=== PATIENT | female | born 1930 | race Caucasian/White ===

== ENCOUNTER 2017-08-29 09:17 | Inpatient (IN) | payer MEDICARE ==
[~2017-08-29] VITALS: Ht 160 cm; Wt 66.0 kg
[~2017-08-29 09:17] MED LIST: Bactrim Ds Tab1 EACH PO; CEPH500 PO; CREON DR 12,001 EACH PO; FAMO20 PO; METO25ER; METPRE4DP PO; Metoprolol Succ25 MG PO; Norco 5-325 Ta1 EACH PO; OMEPRAZOLE MAGN20 MG PO; OXYACE5T PO; Ondansetron Odt8 MG PO; Percocet 5-3251 EACH PO; SUCR1 PO; TRAM50 PO; Zofran Odt4 MG PO; [UNRECOGNIZED DRUG - REMARK]; [UNRECOGNIZED DRUG - REMARK]
[2017-08-29 09:45] LABS: BASOPHILS ABSOLUTE AUTO 0.03 K/mm3 (0.00-0.23); BASOPHILS PERCENT AUTO 1 % (0-2); EOSINOPHILS ABSOLUTE AUTO 0.18 K/mm3 (0.00-0.68); EOSINOPHILS PERCENT AUTO 3 % (0-6); Hematocrit 38.5 % (33.0-51.0); Hemoglobin 13.2 g/dL (11.5-16.0); IMMATURE GRAN ABSOLUTE AUTO 0.02 K/mm3 (0.00-0.10); IMMATURE GRAN PERCENT AUTO 0 % (0-1); LYMPHOCYTES ABSOLUTE AUTO 1.06 K/mm3 (0.84-5.20); LYMPHOCYTES PERCENT AUTO 17 % (21-46); MONOCYTES ABSOLUTE AUTO 0.32 K/mm3 (0.16-1.47); MONOCYTES PERCENT AUTO 5 % (4-13); Mean Corpuscular HGB 30.1 pg (26.0-34.0); Mean Corpuscular HGB Conc 34.3 g/dL (31.5-36.5); Mean Corpuscular Volume 88 fL (80-100); NEUTROPHILS ABSOLUTE AUTO 4.81 K/mm3 (1.96-9.15); NEUTROPHILS PERCENT AUTO 75 % (41-73); Platelet Count 234 K/mm3 (150-400); RDW Coefficient Variation 12.6 % (11.7-14.2); RDW Standard Deviation 40.8 fL (35.1-46.3); Red Blood Cell Count 4.39 M/mm3 (3.80-5.20); White Blood Cell Count 6.42 K/mm3 (4.00-11.30)
[2017-08-29 10:00] LABS: International Normalized Ratio 1.08; Prothrombin Time Results 11.1 Sec (9.7-11.5)
[2017-08-29 10:05] LABS: Alanine Aminotransfer (ALT/SGP 21 U/L (12-78); Albumin, Blood 3.5 g/dL (3.4-5.0); Albumin/Globulin Ratio 0.9 (0.8-1.8); Alk Phos 66 U/L (50-136); Anion Gap 11 mmol/L (6-16); Aspartate Aminotrans (AST/SGOT 33 U/L (12-37); Bilirubin, Total 1.2 mg/dL (0.1-1.0); Blood Urea Nitrogen 14 mg/dL (8-24); Bun/Creatinine Ratio 21.9 (12.0-20.0); CO2, Blood 26 mmol/L (21-32); Calcium, Blood 8.6 mg/dL (8.5-10.1); Chloride, Blood 104 mmol/L (98-108); Creatinine, Blood 0.64 mg/dL (0.40-1.00); Globulin, Blood 3.8 g/dL (2.2-4.0); Glomerular Filtration Rate >60 (60-); Glucose, Blood 147 mg/dL (70-99); Potassium, Blood 3.5 mmol/L (3.5-5.5); Sodium, Blood 141 mmol/L (136-145); Total Protein, Blood 7.3 g/dL (6.4-8.2)
[2017-08-29] MEDS ORDERED: CREON DR 24,001 EACH PO (14:25)
[2017-08-29] MEDS ORDERED: FISH OIL 1,0001 EAC1 PO (14:25)
[2017-08-29] MEDS ORDERED: ACET325 PO (14:26)
[2017-08-29] MEDS ORDERED: TRAM50 PO (14:26)
[2017-08-29] MEDS ORDERED: Zofran8 MG PO (14:27)
[2017-08-30 05:00] LABS: Anion Gap 8 mmol/L (6-16); Blood Urea Nitrogen 14 mg/dL (8-24); Bun/Creatinine Ratio 19.8 (12.0-20.0); CHOL/HDL RATIO 3.5; CO2, Blood 29 mmol/L (21-32); Calcium, Blood 8.4 mg/dL (8.5-10.1); Chloride, Blood 102 mmol/L (98-108); Cholesterol 195 mg/dL (50-200); Creatinine, Blood 0.71 mg/dL (0.40-1.00); Glomerular Filtration Rate >60 (60-); Glucose, Blood 115 mg/dL (70-99); HDL Cholesterol 55 mg/dL (>39); LDL/HDL RATIO 2.3; Low Density Lipoprotein Chol 128 mg/dL (0-110); Potassium, Blood 3.4 mmol/L (3.5-5.5); Sodium, Blood 139 mmol/L (136-145); Triglycerides 59 mg/dL (30-160); Very Low Density Lipoprot Chol 11 mg/dL (6-32)
[2017-08-31 01:47] LABS: Source, Urine Clean Catch
[2017-08-31 01:49] LABS: Bilirubin, Urine Neg (Neg); Blood, Urine 1+ (Neg); Glucose Qualitative, Urine Neg (Neg); Ketones, Urine Neg (Neg); Leukocyte Esterase, Urine 3+ (Neg); Nitrite, Urine Neg (Neg); Protein, Urine 1+ (Neg); Urobilinogen, Urine NORM (Normal)
[2017-08-31 01:51] LABS: Appearance, Urine Cloudy (Clear); Color, Urine Yellow (P-Yellow)
[2017-08-31 02:01] LABS: Bacteria Many /hpf; Red Blood Cells, Urine Rare /hpf (0-2); Squamous Epithelial Cells Not Seen /hpf (Few); White Blood Cells, Urine TNTC /hpf (0-5)
[2017-08-31 04:27] LABS: Hematocrit 36.5 % (33.0-51.0); Hemoglobin 12.3 g/dL (11.5-16.0); Mean Corpuscular HGB 29.7 pg (26.0-34.0); Mean Corpuscular HGB Conc 33.7 g/dL (31.5-36.5); Mean Corpuscular Volume 88 fL (80-100); Mean Platelet Volume 10.2 fL (9.1-12.4); Platelet Count 220 K/mm3 (150-400); RDW Standard Deviation 42.1 fL (35.1-46.3); Red Blood Cell Count 4.14 M/mm3 (3.80-5.20); White Blood Cell Count 6.84 K/mm3 (4.00-11.30)
[2017-08-31 04:50] LABS: Albumin, Blood 3.1 g/dL (3.4-5.0); Anion Gap 7 mmol/L (6-16); Blood Urea Nitrogen 20 mg/dL (8-24); CO2, Blood 29 mmol/L (21-32); Calcium, Blood 8.5 mg/dL (8.5-10.1); Chloride, Blood 103 mmol/L (98-108); Glomerular Filtration Rate >60 (60-); Glucose, Blood 107 mg/dL (70-99); Phosphorus, Blood 2.5 mg/dL (2.5-4.9); Potassium, Blood 3.6 mmol/L (3.5-5.5); Sodium, Blood 139 mmol/L (136-145)
[2017-08-31 16:48] LABS: Source, Urine Clean Catch
[2017-08-31 16:51] LABS: Bilirubin, Urine Neg (Neg); Blood, Urine 1+ (Neg); Glucose Qualitative, Urine Neg (Neg); Ketones, Urine Neg (Neg); Leukocyte Esterase, Urine 2+ (Neg); Nitrite, Urine Neg (Neg); Protein, Urine Neg (Neg); Urobilinogen, Urine NORM (Normal)
[2017-08-31 16:57] LABS: Appearance, Urine Clear (Clear); Bacteria Many /hpf; Color, Urine Yellow (P-Yellow); Squamous Epithelial Cells Few /hpf (Few)
[2017-09-01 04:11] LABS: Anion Gap 7 mmol/L (6-16); Blood Urea Nitrogen 17 mg/dL (8-24); Bun/Creatinine Ratio 21.7 (12.0-20.0); CO2, Blood 30 mmol/L (21-32); Calcium, Blood 8.5 mg/dL (8.5-10.1); Chloride, Blood 104 mmol/L (98-108); Creatinine, Blood 0.78 mg/dL (0.40-1.00); Glomerular Filtration Rate >60 (60-); Glucose, Blood 102 mg/dL (70-99); Potassium, Blood 3.7 mmol/L (3.5-5.5); Sodium, Blood 141 mmol/L (136-145)
[2017-09-02] MEDS ORDERED: METO50ER PO (13:02)
[2017-09-02] MEDS ORDERED: ASPI81CH PO (13:14)
[2017-09-02] MEDS ORDERED: CLOP75 PO (13:15)
[2017-09-02] MEDS ORDERED: DOCU100 PO (13:17)
[2017-09-02] MEDS ORDERED: HYDRA25 PO (13:18)
[2017-09-02] MEDS ORDERED: Prinivil10 MG PO (13:19)
[2017-09-02] MEDS ORDERED: CEFU500T30 PO (13:23)
[2017-09-02] MEDS ORDERED: Senna-Extra17.2 MG PO (13:27)
== END 2017-09-03 11:51 | DRG 65 ==
LOC: ER 09:17 → PCU 09:53
PROVIDERS: Emergency Medicine; Internal Medicine
DX: I63.30 Cerebral infarction due to thrombosis of unspecified cerebral artery (principal); G81.94 Hemiplegia, unspecified affecting left nondominant side; K86.1 Other chronic pancreatitis; N39.0 Urinary tract infection, site not specified; B96.20 Unspecified Escherichia coli [E. coli] as the cause of diseases classified elsewhere; E78.00 Pure hypercholesterolemia, unspecified; M81.0 Age-related osteoporosis without current pathological fracture; M19.91 Primary osteoarthritis, unspecified site; M51.36 Other intervertebral disc degeneration, lumbar region; R40.2412 Glasgow coma scale score 13-15, at arrival to emergency department; Z87.11 Personal history of peptic ulcer disease; Z79.899 Other long term (current) drug therapy
CPT/HCPCS: 36415; 70450; 70551; 71046; 80048; 80053; 80061; 80069; 81001; 83036; 85025; 85027; 85610; 85730; 87077; 87086; 87186; 92610; 93005; 93010; 93306; 93880; 97110; 97112; 97116; 97163; 97166; 97530; 97535; 99285; G8978; G8979; G8987; G8988; G8996; G8997; G8998; J0360; J0696; J1650; J2405; J2550; J7030

== ENCOUNTER 2018-10-06 12:07 | Day surgery (SDC) | payer MEDICARE ==
[~2018-10-06] VITALS: Ht 162.6 cm; Wt 66.6 kg
[~2018-10-06 12:07] MED LIST changes: +ACET325 PO; +ASPI81CH PO; +CEFU500T30 PO; +CLOP75 PO; +CREON DR 24,001 EACH PO; +DOCU100 PO; +Dyazide 37.5-21 EACH PO; +FEBU40TA PO; +FISH OIL 1,0001 EAC1 PO; +HYDRA25 PO; +LIDO700A20 TOP; +METO25ER PO; +METO50ER PO; +OXYC5 PO; +POTA10T PO; +Prinivil10 MG PO; +Senna-Extra17.2 MG PO; +Voltaren100 GM TOP; +Zantac150 MG PO; +Zofran8 MG PO
--- NOTE | 2018-10-06 13:12 | NUR ---
Ambulatory in Day Surgery WITH CANE. Pravin Paws warming gown applied. Surgical site prepped with 2% Chlorhexidine cloth wipe. History, Chart, Medications and Allergies reviewed before start of procedure.Lungs clear T/O to Auscultation. Patient confirms NPO status and agrees with scheduled surgery. Patient reports completing Chlorhexadine shower X2 prior to admission to hospital. BELONIGNS IN PT BAG UNDER BED. SUITCASE GIVEN TO [employer] CONSULTANT.
[2018-10-07 04:13] LABS: BASOPHILS ABSOLUTE AUTO 0.01 K/mm3 (0.00-0.23); BASOPHILS PERCENT AUTO 0 % (0-2); EOSINOPHILS PERCENT AUTO 0 % (0-6); Hematocrit 30.5 % (33.0-51.0); Hemoglobin 10.1 g/dL (11.5-16.0); IMMATURE GRAN ABSOLUTE AUTO 0.05 K/mm3 (0.00-0.10); IMMATURE GRAN PERCENT AUTO 0 % (0-1); LYMPHOCYTES PERCENT AUTO 6 % (21-46); MONOCYTES ABSOLUTE AUTO 0.54 K/mm3 (0.16-1.47); MONOCYTES PERCENT AUTO 5 % (4-13); Mean Corpuscular HGB 30.1 pg (26.0-34.0); Mean Corpuscular HGB Conc 33.1 g/dL (31.5-36.5); Mean Corpuscular Volume 91 fL (80-100); NEUTROPHILS ABSOLUTE AUTO 10.73 K/mm3 (1.96-9.15); NEUTROPHILS PERCENT AUTO 89 % (41-73); Platelet Count 198 K/mm3 (150-400); RDW Coefficient Variation 11.9 % (11.7-14.2); RDW Standard Deviation 39.8 fL (35.1-46.3); Red Blood Cell Count 3.36 M/mm3 (3.80-5.20); White Blood Cell Count 12.03 K/mm3 (4.00-11.30)
[2018-10-07 04:30] LABS: Anion Gap 5 mmol/L (6-16); Blood Urea Nitrogen 21 mg/dL (8-24); Bun/Creatinine Ratio 23.8 (12.0-20.0); CO2, Blood 27 mmol/L (21-32); Calcium, Blood 8.2 mg/dL (8.5-10.1); Chloride, Blood 104 mmol/L (98-108); Creatinine, Blood 0.88 mg/dL (0.40-1.00); Glomerular Filtration Rate >60 (60-); Glucose, Blood 164 mg/dL (70-99); Magnesium, Blood 1.8 mg/dL (1.6-2.4); Potassium, Blood 4.6 mmol/L (3.5-5.5); Sodium, Blood 136 mmol/L (136-145)
--- NOTE | 2018-10-07 06:38 | NUR ---
POD 1 S/P R TKA. PT VSS T/O NIGHT, DRESSING CDI. PT QUITE PAINFUL EARLY IN NIGHT, MEDICATED W/PO PAIN MEDS, STILL NEEDED 0.5MG IV DILAUDID FOR BREAKTHROUGH PAIN. PT AWOKE CONFUSED THIS AM, STATING "THOSE PILLS MADE ME FEEL CRAZY" PT REORIENTED, ALL OTHER NEURO CHECKS WNL. PT UP OOB W/FWW+1 ASSIST, AMB IN HALLS X1, CHU WELL. PT CHU REG PO, IS VOIDING URINE W/O DIFFICULTY. PT USING CALL LIGHT FOR ASSISTANCE, WILL CONT TO MONITOR UNTIL REP GIVEN TO ONCOMING RN.
[2018-10-07] MEDS ORDERED: OXYC5 PO (15:38)
[2018-10-07] MEDS ORDERED: ASPI325 PO (15:38)
--- NOTE | 2018-10-07 16:23 | NUR ---
DISCHARGE PT CLEARED THERAPY, PAIN WELL MANAGED, CONFUSION IS RESOLVED BUT STILL REQIURES PROMPTING. CAREGIVER STATES SHE IS STAYING TONIGHT WITH PT AND PT'S DAUGHTER WILL BE WITH HER THE FOLLOWING 2-3 DAYS AND NIGHTS. VOIDING WELL, EATING AND DRINKING WELL. YUDITH WNL. GAYATHRIGS GIVEN.
== END 2018-10-07 16:03 | disposition home or self-care (01) ==
LOC: ORSCMMR 12:07 → ORD 14:00 → SURS 17:04 → ORSCMMR 10-07 16:03
PROVIDERS: Orthopaedic Surgery
PROC: 8E0YXBZ Computer Assisted Procedure of Lower Extremity (ICD-10-PCS; principal; 2018-10-06 14:00)
PROC: 0SRC0J9 Replacement of Right Knee Joint with Synthetic Substitute, Cemented, Open Approach (ICD-10-PCS; principal; 2018-10-06 14:00)
DX: M17.11 Unilateral primary osteoarthritis, right knee (principal); I10 Essential (primary) hypertension; Z79.899 Other long term (current) drug therapy
CPT/HCPCS: 36415; 73560-RT; 80048; 83735; 85025; 88300; 97110; 97116; 97162; 97530; A9270-GY; C1713; C1776; J0171; J0690; J0735; J1100; J1170; J1885; J2405; J2704; J2795; J3010; J7120

== ENCOUNTER 2019-03-19 10:55 | Emergency (ER) | payer MEDICARE ==
[~2019-03-19] VITALS: Ht 160 cm; Wt 63.5 kg
[~2019-03-19 10:55] MED LIST changes: +ASPI325 PO
[2019-03-19 11:40] LABS: BASOPHILS ABSOLUTE AUTO 0.03 K/mm3 (0.00-0.23); BASOPHILS PERCENT AUTO 0 % (0-2); EOSINOPHILS ABSOLUTE AUTO 0.35 K/mm3 (0.00-0.68); EOSINOPHILS PERCENT AUTO 4 % (0-6); Hematocrit 40.4 % (33.0-51.0); Hemoglobin 13.4 g/dL (11.5-16.0); IMMATURE GRAN ABSOLUTE AUTO 0.02 K/mm3 (0.00-0.10); IMMATURE GRAN PERCENT AUTO 0 % (0-1); LYMPHOCYTES ABSOLUTE AUTO 2.02 K/mm3 (0.84-5.20); LYMPHOCYTES PERCENT AUTO 24 % (21-46); MONOCYTES ABSOLUTE AUTO 0.51 K/mm3 (0.16-1.47); MONOCYTES PERCENT AUTO 6 % (4-13); Mean Corpuscular HGB 29.8 pg (26.0-34.0); Mean Corpuscular HGB Conc 33.2 g/dL (31.5-36.5); Mean Corpuscular Volume 90 fL (80-100); Mean Platelet Volume 9.8 fL (9.1-12.4); NEUTROPHILS ABSOLUTE AUTO 5.64 K/mm3 (1.96-9.15); NEUTROPHILS PERCENT AUTO 66 % (41-73); Platelet Count 291 K/mm3 (150-400); RDW Coefficient Variation 12.5 % (11.7-14.2); RDW Standard Deviation 41.1 fL (35.1-46.3); White Blood Cell Count 8.57 K/mm3 (4.00-11.30)
[2019-03-19 11:54] LABS: Alanine Aminotransfer (ALT/SGP 24 U/L (12-78); Albumin, Blood 3.6 g/dL (3.4-5.0); Albumin/Globulin Ratio 0.9 (0.8-1.8); Alk Phos 69 U/L (50-136); Anion Gap 9 mmol/L (6-16); Aspartate Aminotrans (AST/SGOT 24 U/L (12-37); Bilirubin, Total 0.5 mg/dL (0.1-1.0); Blood Urea Nitrogen 18 mg/dL (8-24); CO2, Blood 24 mmol/L (21-32); Calcium, Blood 8.8 mg/dL (8.5-10.1); Chloride, Blood 104 mmol/L (98-108); Creatinine, Blood 0.95 mg/dL (0.40-1.00); Globulin, Blood 3.8 g/dL (2.2-4.0); Glomerular Filtration Rate 59 (60-); Glucose, Blood 170 mg/dL (70-99); Magnesium, Blood 1.6 mg/dL (1.6-2.4); Potassium, Blood 3.9 mmol/L (3.5-5.5); Sodium, Blood 137 mmol/L (136-145); Total Protein, Blood 7.4 g/dL (6.4-8.2); Troponin I <0.015 ng/mL (0.000-0.040)
== END 2019-03-19 12:33 | disposition home or self-care (01) ==
LOC: ER 10:55
PROVIDERS: Emergency Medicine
DX: I47.1 Supraventricular tachycardia (principal); I10 Essential (primary) hypertension; Z88.8 Allergy status to other drugs, medicaments and biological substances; Z79.899 Other long term (current) drug therapy; Z79.82 Long term (current) use of aspirin
CPT/HCPCS: 36415; 71045; 80053; 83735; 84484; 85025; 93005; 93010; 96374; 99285-25; J0153; J7030